=== PATIENT | male | born 1935 | race Caucasian/White ===

== ENCOUNTER 2022-10-28 11:55 | Outpatient (CLI) | payer MEDICARE, SELFPAY ==
[2022-10-28 12:21] LABS: Basophils Absolute Auto 0.05 K/uL (0.00-0.30); Basophils Percent Auto 0.9 % (0.0-3.0); Eosinophils Absolute Auto 0.21 K/uL (0.00-0.50); Eosinophils Percent Auto 3.8 % (0.0-7.0); Hematocrit 30.1 % (37.0-53.0); Hemoglobin* 8.6 gm/dL (13.5-17.5); Lymphocytes Percent Auto 10.2 % (20-44); Mean Corpuscular HGB Conc 29 gm/dL (32-36); Mean Corpuscular Hemoglobin 24 pg (26-34); Mean Corpuscular Volume 83 fL (80-100); Monocytes Percent Auto 10.4 % (0.0-11.0); Neutrophils Percent Auto 74.7 % (42.0-72.0); Platelet Count* 328 K/uL (140-440); RDW Coefficient of Variation % 15.7 % (11.5-15.5); Red Blood Count 3.65 m/uL (4.30-5.90); White Blood Count* 5.48 K/uL (4.50-11.00)
[2022-10-28 12:25] LABS: Slide Review Reflex No
[2022-10-28 12:42] LABS: Albumin* 4.3 g/dL (3.3-5.0); Chloride* 103 mmol/L (96-114); Sodium* 142 mmol/L (135-149)
[2022-10-28 12:43] LABS: Potassium* 4.2 mmol/L (3.6-5.1)
[2022-10-28 12:45] LABS: Aspartate Amino Transferase* 27 U/L (12-35); Blood Urea Nitrogen* 23 mg/dL (7-30); Carbon Dioxide* 28 mmol/L (20-32); Estimated Glomerular Filt Rate 74 ml/min; Total Protein* 7.2 g/dL (6.0-8.3)
[2022-10-28 12:46] LABS: Alanine Aminotransferase* 22 U/L (4-50); Anion Gap 11 mEq/L (7-15); Calcium* 8.8 mg/dL (8.4-10.6); Glucose* 115 mg/dL (60-115)
[2022-10-28 13:06] LABS: Alkaline Phosphatase* 97 U/L (40-150)
== END 2022-10-28 11:56 | disposition home or self-care (01) ==
LOC: LAB 12:00
PROVIDERS: PCP Internal Medicine; Visit Provider Internal Medicine
DX: C82.11 Follicular lymphoma grade II, lymph nodes of head, face, and neck (principal)
CPT/HCPCS: 36415; 80053; 85025